=== PATIENT | male | born 1960 | race Caucasian/White ===

== ENCOUNTER → 2017-09-22 | Outpatient (CLI) | payer BC ==
--- NOTE | 2017-09-22 18:40 | US ---
EXAMINATION TYPE: US renals and bladder DATE OF EXAM: 09/22/2017 COMPARISON: NONE CLINICAL HISTORY: Hematuria R31.9. Difficulty urinating. EXAM MEASUREMENTS: Right Kidney: 11.9 x 3.7 x 4.3 cm Left Kidney: 10.9 x 5.3 x 5.2 cm Right Kidney: No hydronephrosis or masses seen Left Kidney: No hydronephrosis or masses seen Bladder: Hypoechoic area inferior bladder measuring 1.0 x 1.0 x 2.2cm vs. prostate. Prostate is promi nent with calcifications measuring 3.7 x 3.6 x 4.5cm Bilateral Jets seen: Yes right jet seen There is no evidence for hydronephrosis at this point in time. No nephrolithiasis is seen. No hans s are identified. Right ureteral jet is seen. Bladder is not greatly distended and suboptimally evaluated. Prominent prostate gland is bulging on b ladder base. There is hypoechoic area marked at this level by technologist favoring bulging prostate, intraluminal mass felt less likely. IMPRESSION: Enlarged prostate consistent with BPH felt present, correlate clinically. No definitive significant f inding to account for patient's symptoms. Given patient's symptoms and possible bladder mass though f avor product of bulging enlarged prostate advise nonemergent CT urogram to further evaluate.
== END | disposition home or self-care (01) ==
LOC: RADUSMAIN 17:34
PROVIDERS: ATTEND Family Medicine
DX: N40.0 Benign prostatic hyperplasia without lower urinary tract symptoms (principal); R31.9 Hematuria, unspecified
CPT/HCPCS: 76770